=== PATIENT | male | born 1985 ===

== ENCOUNTER → 2024-01-02 | Day surgery (SDC) | payer OTHER ==
[~2024-01-02] MED LIST: DIPHENHYDRAMINE HCL 50 MG/ML VIAL 1ML IV ONE; MEPERIDINE HCL/PF 50 MG/ML VIAL IV ONE; MIDAZOLAM HCL/PF 5 MG/ML VIAL IV ONE
== END | disposition home or self-care (01) ==
LOC: ADM 12-30 12:15 → AMB-ENDOS 05:30 → CIR.AMB 12:15
PROVIDERS: ATTEND Surgery
DX: R10.13 Epigastric pain (principal); K44.9 Diaphragmatic hernia without obstruction or gangrene; E66.9 Obesity, unspecified